=== PATIENT | male | born 1985 | race Caucasian/White ===

== ENCOUNTER 2017-01-16 13:56 | Emergency (ER) | payer SELFPAY ==
[~2017-01-16] VITALS: Ht 180.3 cm; Wt 120.0 kg
[2017-01-16 13:58] VITALS: BP 153/72; PULSE 81; RESP 16; TEMP 97.9; O2SAT 98
--- NOTE | 2017-01-16 15:52 | PD ---
HPI Chief Complaint: Eye Problems/Injury Time Seen by Provider: 15:46 Travel History International Travel<30 days: Yes Contact w/Intl Traveler<30days: Yes Name of Country Traveled to: [place] Traveled to known affect area: No History of Present Illness HPI 31-year-old male presents emergency Department with complaint of an area to his left iris that has turned black since yesterday after looking at the sun during the eclipse. He said after looking at the sun yesterday he had pain in his left eye that caused him to have a headache. He also had blurred vision yesterday. He denies eye pain at this time. States he still has blurry vision but it is not as bad as it was yesterday. Denies drainage from his eyes. Symptoms are mild in severity. Has not taken any medications or tried any treatments to alleviate his symptoms. Has no other medical complaints. No known allergies. No other modifying factors or associated signs and symptoms. PFSH Social History Tobacco Use: No Allergies-Medications (Allergen,Severity, Reaction): Coded Allergies: No Known Allergies (Unverified , 01/16/17) Reported Meds & Prescriptions Reported Meds & Active Scripts Active No Active Prescriptions or Reported Medications Review of Systems Except as stated in HPI: all other systems reviewed are Neg Physical Exam Narrative GENERAL: Well-nourished, well-developed male patient, in no acute distress SKIN: Warm and dry. HEAD: Atraumatic. Normocephalic. EYES: Pupils equal and round at 3 mm with brisk reaction. PERRLA. EOMI. visual acuity 20/20 right; 20/20 left. There is an area of the left iris at the 2 o'clock position that is darker than his original eye color. Left eye without scleral erythema or lid edema. No orbital tenderness, erythema or cellulitis. Left eye without photophobia. No consensual photophobia. No scleral icterus. No drainage. ENT: Mucosa pink and moist. Airway patent. NECK: Trachea midline. CARDIOVASCULAR: Regular rate. RESPIRATORY: No accessory muscle use. NEUROLOGICAL: Awake and alert. Oriented 3. No obvious cranial nerve deficits. Motor grossly within normal limits. Normal speech. PSYCHIATRIC: Appropriate mood and affect; insight and judgment normal. Data Data Last Documented VS Vital Signs Date Time Temp Pulse Resp B/P (MAP) Pulse Ox O2 Delivery O2 Flow Rate FiO2 01/16/17 16:00 01/16/17 13:58 97.9 81 16 98 Orders Orders Mandatory Outpatient Referral (01/16/17 15:52) [facility] Medical Decision Making Medical Screen Exam Complete: Yes Emergency Medical Condition: Yes Medical Record Reviewed: Yes Differential Diagnosis Blurry vision, solar burn, medical clearance Narrative Course 31-year-old male with continued blurry vision after looking at the solar eclipse yesterday. He also has an area to the iris at the 2 o'clock position that is darker than his original eye color. I don't of his color changes and findings are old; the patient says is new and has never noticed it before, but he does have very dark brown eyes. Visual acuity is 20/20 right and 20/20 left. He denies eye pain at this time. Mandatory outpatient referral ordered for patient follow-up. Instructed patient to follow-up pathology in 1-2 days. Instructed patient to follow up with primary care provider. Patient verbalizes understanding and agreement with treatment plan. Patient is medically cleared and stable for discharge. Discussed reasons to return to the emergency department. Patient agrees with treatment plan. The patients vital signs are stable and the patient is stable for outpatient follow-up and treatment. Patient discharged home, stable and in no acute distress. Diagnosis Primary Impression: Blurry vision, left eye Referrals: Srini Lebron MD [facility] Senior Data Scientist Patient Instructions: Blurred Vision (ED), Eye Pain (ED), General Instructions Departure Forms: Tests/Procedures, Work Release Enter return to work date: Jan 18, 2017 Additional Instructions: Follow-up with ophthalmology in one to [address] 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
== END 2017-01-16 16:06 | disposition home or self-care (01) ==
LOC: NEPK 13:56
DX: H53.8 Other visual disturbances (principal)
CPT/HCPCS: 99282